=== PATIENT | female | born 1995 | race Caucasian/White ===

== ENCOUNTER 2023-12-30 13:45 | Outpatient (OUT) | payer OTHER, SELFPAY ==
--- NOTE | 2023-12-30 13:55 | US_ITS ---
The [address] [address] Patient Name: ROSA PASTRANA MRN: [id number] date: 1995 Sex: F Assigned Patient Location: US Current Patient Location: Accession/Order Number: [id number] Exam Date: 12/30/2023 14:04 Report Date: 12/31/2023 07:09 At the request of: PJ PENDLETON Procedure: US extremity nonvascular RT EXAM: US extremity nonvascular RT HISTORY: Groin Mass R19.09 COMPARISON: None. TECHNIQUE: Grayscale and color ultrasound FINDINGS: Identified in the left groin corresponding to patient's palpable abnormality 2.6 x 0.7 x 1.9 cm area of anechoic echogenicity, this has an imperceptible wall with no internal echoes and no vascularity. Adjacent to this anechoic lesion with a normal size normal morphology lymph node measuring 1.5 x 0.6 x 1.2 cm US/US extremity nonvascular RT IMPRESSION: 2.6 cm cystic lesion in the right groin corresponding to the patient's palpable abnormality with an adjacent normal size normal morphology lymph node Electronically authenticated by: GEOVANNA KILPATRICK Date: 12/31/2023 07:09
== END 2023-12-30 13:46 | disposition home or self-care (01) ==
PROVIDERS: PCP Nurse Practitioner Family; Visit Provider Nurse Practitioner Family
DX: R19.09 Other intra-abdominal and pelvic swelling, mass and lump (principal)
CPT/HCPCS: 76882